=== PATIENT | male | born 1995 | race Caucasian/White ===

== ENCOUNTER 2021-12-28 12:28 | Emergency (ER) | payer OTHER ==
[~2021-12-28] VITALS: Ht 177.8 cm; Wt 77.1 kg
[2021-12-28 12:28] VITALS: BP 125/67
--- NOTE | 2021-12-28 13:00 | NUR ---
PROCESS SAFETY SPECIALIST AT BEDSIDE FOR XRAY
[2021-12-28] MEDS ORDERED: IBUP-1955 PO (13:30)
--- NOTE | 2021-12-28 13:40 | NUR ---
EMT AT BEDSIDE FOR SPLINT APPLICATION
--- NOTE | 2021-12-28 13:49 | NUR ---
Patient discharged to home in stable condition. Written and verbal after care instructions given. Patient verbalizes understanding of instruction.
== END 2021-12-28 13:50 | disposition home or self-care (01) ==
LOC: ER 12:34
DX: S62.291A Other fracture of first metacarpal bone, right hand, initial encounter for closed fracture (principal); Z60.2 Problems related to living alone; Y04.2XXA Assault by strike against or bumped into by another person, initial encounter; Y93.89 Activity, other specified; Y92.89 Other specified places as the place of occurrence of the external cause; Y99.8 Other external cause status
CPT/HCPCS: 73130-TC